=== PATIENT | female | born 1945 | race African-American/Black ===

== ENCOUNTER 2021-08-22 10:01 | Inpatient (IN) | payer OTHER ==
[~2021-08-22] VITALS: Ht 157.5 cm; Wt 71.2 kg
--- NOTE | ~2021-08-22 | PROC ---
[address] [address] PROCEDURE REPORT Name: MCKINLEY MANZO Room: [address] IN .#: [id number] Admission: 08/22/21 Attend Phys: Geoffrey Palomares MD Discharge: Date of : 45 Report #: [id number] THIS REPORT FOR: cc: Philippe Cardenas. Philippe Ramirez. [facility],Medical Records Staff ~ For GI report, please see the Provation report in Perceptive 7 content. By: 1218Medical Records Staff JEREMIAH /LISA
[~2021-08-22 10:01] MED LIST: AMLODIPINE BESY10 MG PO; ASPIRIN EC81 M1 PO; CARDURA4 MG PO; CATAPRES0.2 MG PO; COZAAR 50 MG TA50 M1 PO; DEMADEX20 MG PO; GLUCOTROL10 MG PO; LANTUS SUBQ; LOPRESSOR50 PO
[2021-08-22 10:06] VITALS: BP 89/34
[2021-08-22 10:42] LABS: ABSOLUTE BASOPHILS 0.1 thou/uL (0.0-0.2); ABSOLUTE EOSINOPHILS 0.1 thou/uL (0.0-0.7); ABSOLUTE LYMPHOCYTES 0.7 thou/uL (0.8-5.3); ABSOLUTE MONOCYTES 0.7 thou/uL (0.0-1.2); ABSOLUTE NEUTROPHILS 6.1 thou/uL (1.6-8.1); BASOPHILS 0.8 %; EOSINOPHILS 1.7 %; HEMATOCRIT 22.5 % (37.0-47.0); LYMPHOCYTES 8.6 %; MCH 32.4 pg (26.0-34.0); MCHC 31.4 g/dL (28.0-37.0); MCV 103.2 fL (80.0-100.0); MPV 9.9 fl. (7.2-11.1); NUCLEATED RBCS 0 /100WBC; PLATELET COUNT* 200 thou/uL (150-400); POLYS 79.9 %; RBC 2.18 mil/uL (4.20-5.00); RDW-CV 20.1 % (10.5-14.5); WBC 7.7 thou/uL (4.0-11.0)
[2021-08-22 10:52] LABS: CALCIUM 8.1 mg/dL (8.5-10.1); CREATININE 4.5 mg/dL (0.6-1.3); POTASSIUM 3.5 mmol/L (3.5-5.1)
[2021-08-22 10:57] LABS: ALBUMIN 2.7 g/dL (3.4-5.0); TOTAL BILIRUBIN 0.4 mg/dL (<0.1-1.0); TOTAL PROTEIN 6.6 g/dL (6.4-8.2)
[2021-08-22 11:47] LABS: PLATELET ESTIMATE ADEQUATE
[2021-08-22 11:48] LABS: MACROCYTES 1+
[2021-08-22 11:49] LABS: LARGE PLATELETS RARE; POLYCHROMASIA Occasional
[2021-08-22 11:50] LABS: ANISOCYTOSIS 1+
--- NOTE | 2021-08-22 14:07 | EKG ---
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 : 1945 Requested By: Elena Orr Order Number: [id number] MD: Fabian Orozco Measurements Intervals [place] Rate: 74 P: 65 ME: 210 QRS: 2 QRSD: 98 T: -17 QT: 400 QTc: 444 Interpretive Statements Pacemaker spikes or artifacts Sinus rhythm ventricular premature complexes in couplets Borderline T abnormalities, inferior leads Compared to ECG 05/03/2012 12:39:36 ventricular premature complex(es) now present Sinus bradycardia no longer present Left ventricular hypertrophy no longer present Electronically Signed On 08-22-2021 14:07:30 CARTON INSPECTOR by Fabian Orozco [email or web address] <ELECTRONICALLY SIGNED> By: Fabian Orozco MD, [facility] 08/22/21 1407 1014 1014 Fabian Orozco MD, [facility] /EPI
[2021-08-22 16:41] VITALS: BP 116/60
[2021-08-22 21:30] VITALS: BP 126/62
[2021-08-23 01:01] VITALS: BP 97/52
[2021-08-23 04:45] LABS: ABSOLUTE BASOPHILS 0.1 thou/uL (0.0-0.2); ABSOLUTE EOSINOPHILS 0.2 thou/uL (0.0-0.7); ABSOLUTE LYMPHOCYTES 0.9 thou/uL (0.8-5.3); ABSOLUTE MONOCYTES 0.7 thou/uL (0.0-1.2); BASOPHILS 0.9 %; EOSINOPHILS 3.3 %; HEMATOCRIT 22.1 % (37.0-47.0); HEMOGLOBIN 7.3 gm/dL (12.0-15.0); LYMPHOCYTES 12.6 %; MCH 31.5 pg (26.0-34.0); MCHC 32.9 g/dL (28.0-37.0); MONOCYTES 10.3 %; MPV 9.1 fl. (7.2-11.1); NUCLEATED RBCS 0 /100WBC; PLATELET COUNT* 144 thou/uL (150-400); POLYS 72.9 %; RBC 2.31 mil/uL (4.20-5.00); RDW-CV 21.4 % (10.5-14.5); WBC 6.9 thou/uL (4.0-11.0)
[2021-08-23 05:09] LABS: CALCIUM 7.8 mg/dL (8.5-10.1); POTASSIUM 3.2 mmol/L (3.5-5.1)
[2021-08-23 05:21] LABS: CREATININE 5.8 mg/dL (0.6-1.3)
[2021-08-23 05:39] LABS: MCV 95.6 fL (80.0-100.0)
[2021-08-23 05:52] VITALS: BP 92/57
[2021-08-23 06:22] LABS: ANISOCYTOSIS 2+; HYPOCHROMASIA 1+; MICROCYTES 1+
--- NOTE | 2021-08-23 06:51 | NUR ---
PT IS AO X4 FROM HOME HERE FOR DIZZINES, SHE WAS FOUND TO BE ANEMIC WITH LOW HGB AND RECEIVED BLOOD TRANSFUSION. PT REPORTS NO ILL SIDE AFFECTS FROM THIS. VSS, PT REPORTS NO PAIN. SHE IS A [facility] [facility] PT AND HAS ORDER FOR TODAY. PT FELL AT HOME HITTING HEAD AND HAS LARGE HEMATOMA ON FOREHEAD. BED ALARM ON FOR PT SAFETY.
--- NOTE | 2021-08-23 07:10 | NUR ---
CHANGE OF SHIFT REPORT GIVEM PATIENT SEEN AT BEDSIDE, IN BED ASLEEP ASSUMED PATIENT CARE
[2021-08-23 08:00] VITALS: BP 71/36
[2021-08-23 12:00] VITALS: BP 90/43
--- NOTE | 2021-08-23 12:28 | NUR ---
Nutrition: Pt admitted with anemia. Long-term HD. She had a recent fall and 3 blood transfusions. Consult received for wt loss. Pt stated she usually weighs 157#, so no apparent wt loss found. Renal diet ordered. Pt stated she is hungry. Gave her a menu for alternative ordering choices. Labs: BUN 24, cr 5.8, GFR 9, BG 67, alb 2.7, prealb 18.9 Mild nutrition risk. GOALS: continue good appetite, renal diet.
--- NOTE | 2021-08-23 15:30 | NUR ---
CM ASSESSMENT: PT A&O. PT INFORMS THAT SHE ADMITTED TO THIS HOSPITAL FROM SNF AT [facility] AND PLANS TO RETURN THERE AT D/C. PT ALSO INFORMS THAT PRIOR TO HER SNF ADMIT SHE RESIDED AT HOME ALONE. PT WAS INDEPENDENT WITH ADL'S, AND ACTIVE. PT USED A ROLLATOR FOR MOBILITY. PT HAD 0 HX OF HH. PT WILL NEED PT/OT TO ASSIST WITH INSURANCE AUTH FOR THE PT TO RETURN TO SNF AT [facility] AT D/C. CM WILL REMAIN AVAILABLE TO ASSIST AND FOLLOW NEEDED. [facility] PHONE: [phone]
[2021-08-23 16:00] VITALS: BP 156/79
[2021-08-23 21:45] VITALS: BP 90/40
--- NOTE | 2021-08-24 04:43 | NUR ---
PATIENT TRANSFERRED TO ROOM 314 FROM TELEMETRY AT APPROXIMATELY 2135. REPORT GIVEN FROM NURSE ARMENDARIZ. PATIENT BROUGHT TO UNIT ON BED. PATIENT ALERT AND ORIENTED X 4. MEDICATIONS GIVEN ORDERED AND CHARTED. PATIENT HAS REMAINED NPO SINCE MIDNIGHT D/T SCHEDULED EGD TODAY. ASSESSMENT CHARTED. FALL PRECAUTIONS IN PLACE AND HOURLY ROUNDS MADE. WILL CONTINUE WITH PLAN OF CARE AND NURSING TO MONITOR.
[2021-08-24 04:57] VITALS: BP 90/40
[2021-08-24 06:16] LABS: ABSOLUTE EOSINOPHILS 0.2 thou/uL (0.0-0.7); ABSOLUTE LYMPHOCYTES 1.1 thou/uL (0.8-5.3); ABSOLUTE MONOCYTES 0.7 thou/uL (0.0-1.2); ABSOLUTE NEUTROPHILS 4.5 thou/uL (1.6-8.1); BASOPHILS 0.5 %; EOSINOPHILS 3.8 %; HEMATOCRIT 23.2 % (37.0-47.0); HEMOGLOBIN 7.5 gm/dL (12.0-15.0); LYMPHOCYTES 16.4 %; MCH 31.4 pg (26.0-34.0); MCHC 32.2 g/dL (28.0-37.0); MCV 97.5 fL (80.0-100.0); MONOCYTES 10.4 %; MPV 9.7 fl. (7.2-11.1); NUCLEATED RBCS 0 /100WBC; PLATELET COUNT* 127 thou/uL (150-400); POLYS 68.9 %; RBC 2.38 mil/uL (4.20-5.00); RDW-CV 20.9 % (10.5-14.5); WBC 6.6 thou/uL (4.0-11.0)
[2021-08-24 06:35] LABS: ALBUMIN 2.3 g/dL (3.4-5.0); CALCIUM 8.1 mg/dL (8.5-10.1); POTASSIUM 4.3 mmol/L (3.5-5.1); TOTAL BILIRUBIN 0.5 mg/dL (<0.1-1.0); TOTAL PROTEIN 5.9 g/dL (6.4-8.2)
[2021-08-24 06:38] LABS: CREATININE 3.5 mg/dL (0.6-1.3)
[2021-08-24 06:53] LABS: ANISOCYTOSIS 2+; PLATELET ESTIMATE ADEQUATE
[2021-08-24 06:54] LABS: HYPOCHROMASIA 1+; MICROCYTES 1+
[2021-08-24 08:45] VITALS: BP 123/65
--- NOTE | 2021-08-24 17:07 | NUR ---
PLAN OF CARE: PHYSICIAN INFORMS THAT THE PT MAY BE READY TO D/C OVER THE WEEKEND. PLAN FOR THE PT TO RETURN TO [facility] AT D/C. PT/OT EVALS NEEDED TO ASSIST WITH OBTAINING AUTH FOR THE PT. CM WILL REMAIN AVAILABLE TO ASSIST AND FOLLOW NEEDED. [facility] PHONE: [phone]
--- NOTE | 2021-08-24 18:52 | NUR ---
CM FOLLOWUP PT POTENTIAL WEEKEND DC BACK TO [facility] ([phone]). PT/OT FAXED TO [facility] AND [facility] FOR AUTH. AUTH PENDING.
[2021-08-24 19:45] VITALS: BP 120/51
--- NOTE | 2021-08-24 19:52 | NUR ---
PT UP WITH THERAPY WALKING IN THE HALLWAY. PT WENT DOWN FOR HER EGD AND THEY TOOK BIOPSY'S SHE HAS A HIATAL HERNIA, ESPHOGITIS, COLITIS
--- NOTE | 2021-08-24 22:52 | NUR ---
ASSUMED CARE AT 1930. PATIENT RESTING IN BED. TURNS SELF. NO C/O PAIN. TAKES PILLS WITH WATER. BLOOD SUGAR 105. LISPRO NOT INDICATED. PATIENT REFUSED LANTUS INSULIN BECAUSE SHE HAD LOW BLOOD SUGARS ALL DAY DESPITE EDUCATION. [facility] SHUNT HAS POSITIVE THRILL AND BRUIT. NO DRESSING. SALINE LOCK TO LT FA INTACT. HOURLY ROUNDS CONTINUE. BED ALARM ON. CALL LITE IN REACH.
--- NOTE | 2021-08-25 05:47 | NUR ---
RESTED IN BED ALL NIGHT. NO C/O PAIN. TURNS SELF. HOURLY ROUNS CONTINUE. BED ALAMR ON. CALL LITE IN REACH.
[2021-08-25 08:00] VITALS: BP 119/59
[2021-08-25] MEDS ORDERED: CARAFATE 1 GM TA1 G1 PO (08:17)
[2021-08-25] MEDS ORDERED: PROTONIX40 M2 PO (08:17)
[2021-08-25 09:35] LABS: ABSOLUTE EOSINOPHILS 0.2 thou/uL (0.0-0.7); ABSOLUTE MONOCYTES 0.7 thou/uL (0.0-1.2); ABSOLUTE NEUTROPHILS 6.5 thou/uL (1.6-8.1); BASOPHILS 0.5 %; EOSINOPHILS 2.4 %; HEMATOCRIT 25.7 % (37.0-47.0); HEMOGLOBIN 8.2 gm/dL (12.0-15.0); LYMPHOCYTES 11.6 %; MCH 31.5 pg (26.0-34.0); MCHC 32.1 g/dL (28.0-37.0); MCV 98.3 fL (80.0-100.0); MONOCYTES 7.8 %; MPV 9.7 fl. (7.2-11.1); NUCLEATED RBCS 0 /100WBC; PLATELET COUNT* 127 thou/uL (150-400); POLYS 77.7 %; RBC 2.61 mil/uL (4.20-5.00); RDW-CV 21.2 % (10.5-14.5); WBC 8.4 thou/uL (4.0-11.0)
[2021-08-25 09:44] LABS: CALCIUM 8.4 mg/dL (8.5-10.1); CREATININE 5.9 mg/dL (0.6-1.3); POTASSIUM 4.5 mmol/L (3.5-5.1)
[2021-08-25 09:48] LABS: ALBUMIN 2.5 g/dL (3.4-5.0); TOTAL BILIRUBIN 0.6 mg/dL (<0.1-1.0); TOTAL PROTEIN 6.4 g/dL (6.4-8.2)
[2021-08-25 11:07] LABS: PLATELET ESTIMATE DECREASED
[2021-08-25 11:08] LABS: ANISOCYTOSIS 2+; HYPOCHROMASIA 1+; MACROCYTES 1+; MICROCYTES 1+; POLYCHROMASIA Occasional
[2021-08-25 17:30] VITALS: BP 123/61
--- NOTE | 2021-08-25 19:43 | NUR ---
PT HAD DIALYSIS THIS AFTERNOON, THEY TOOK OFF ONE LITER OF FLUID, PT TOLERATED DIALYSIS FINE. PT UP WITH SBA TO THE BATHROOM. VSS AFEBRILE. WILL CONTINUE TO MONITOR PLAN OF CARE.
[2021-08-25 20:10] VITALS: BP 121/57
[2021-08-26 03:05] LABS: HEPATITIS B SURFACE AG Negative (Negative)
--- NOTE | 2021-08-26 04:56 | NUR ---
PT SLEPT OFF AND ON OVERNIGHT. UP WITH ASSIST GB AND WALKER TO BR. LFA SL. R UPPER ARM FISTULA + BRUIT AND THRILL. HS ACCUCHECK 130, REFUSING INSULINS. AOX4, ABLE TO USE CALL LITE AND MAKE NEEDS KNOWN. PT HOPEFUL FOR DISCHARGE SOON. CM FOLLOWING FOR DC PLAN TO IGNITE, INS AUTH PENDING. FALL PRECAUTIONS IN PLACE.
[2021-08-26 08:23] VITALS: BP 128/64
[2021-08-26] MEDS ORDERED: NOVOLOG100 UNIT/M SUBQ (12:08)
[2021-08-26 16:00] VITALS: BP 134/68
--- NOTE | 2021-08-26 17:28 | NUR ---
SPOKE MULTIPLE TIME WITH STORAGE FACILITY HOUSEKEEPER TRACEY ABOUT TRANSFERING PT BACK TO [facility] AND [facility]'S STORAGE FACILITY HOUSEKEEPER STATES "WE WILL HAVE HER BED READY WHEN OUR PT THAT IS DISCHARGED GETS PICKED UP BY THEIR FAMILY TODAY". [facility] HAS FAILED TO CALL AND INFORM US IF THE BED IS AVAILABLE AT THIS TIME.
[2021-08-26 19:45] VITALS: BP 107/63
[2021-08-27] VITALS (7 sets, daily range): BP systolic 110–140; BP diastolic 60–63
--- NOTE | 2021-08-27 04:18 | NUR ---
PT A&O X 4. VSS ON RA. NO C/O PAIN. PT SLEPT OFF AND ON. NO OTHER CONCERNS AT THIS TIME. CALL LIGHT WITHIN REACH. WILL CONTINUE TO MONITOR.
--- NOTE | 2021-08-27 17:18 | NUR ---
CM INFORMED THAT PT'S INSURANCE HAS NOW DECLINED PT TO SNF AND RECOMMENDS HOME WITH HH. PT IN AGREEMENT WITH THIS PLAN AND INFORMS THAT SHE HAS NO PREFERENCE OF HH AT D/C, AND ACCEPTS HH WITH [facility]END[facility]EPTANCE. CM WILL REMAIN AVAILABLE TO ASSIST FOLLOW NEEDED. [facility] PHONE: [phone]
--- NOTE | 2021-08-27 19:36 | NUR ---
PT VERY UPSET THIS AFTERNOON AND EVENING ABOUT BEING DISCHARGED AFTER DIALYSIS, PT DAUGHTER WAS VERY UP SET TOO. HAD THE NURSING SUPER VISOR CALL AND TALK TO HER ABOUT BEING DISCHARGED [facility]. VSS AFEBRILE. WILL CONTINUE TO MONITOR PLAN OF CARE.
--- NOTE | 2021-08-27 21:58 | NUR ---
PT BACK FROM DIALYSIS AT 2019. VSS ON RA. ALL DISCHARGE INSTRUCTIONS REVIEWED WITH THE PT. PT LEFT THE UNIT VIA WHEELCHAIR ACCOMPANIED BY STAFF AND HER DTR WITH ALL HER BELONGINGS AND PAPERWORK.
--- NOTE | 2021-08-29 15:07 | PATH ---
[address] [address] PATHOLOGY RPT PROCEDURE Name: ISABEL MANZO Room: [address] IN [facility]#: [id number] Admission: 08/22/21 Date of : 45 Discharge: 08/27/21 Report #: [id number] Path Case #: [id number] [facility] Accession Number: [id number] . 01 Material submitted: . PART A: stomach - ANTRAL EROSION BIOPSY PART B: duodenum - DUODENAL ULCER BIOPSY . 01 Clinical history: . EGD IN OR . 02 Diagnosis: A. 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 . B. Duodenal ulcer biopsy: - Mild active duodenitis with fundic gland metaplasia suggesting peptic ulcer disease, negative for granulomas, viral inclusions and dysplasia/adenomatous change. . (MINDY:asaf; 08/28/2021) . Special stain on A: H. pylori immuno MBR 08/28/2021 1131 Local . 02 Electronically signed: . Rocky Espinoza MD, Pathologist NPI- [id number] . 01 Gross description: . A. Received in formalin labeled "Isabel Manzo, antral erosion biopsy" is a fragment of hollingsworth-brown soft tissue measuring 0.7 x 0.3 x 0.1 cm. The specimen is submitted entirely in A1. . B. Received in formalin labeled "Isabel Manzo, duodenal ulcer biopsy" are multiple fragments of hollingsworth-brown soft tissue measuring in aggregate 0.5 x 0.4 x 0.1 cm. The specimen is submitted entirely in B1. ([facility]; 08/27/2021) [facility] 08/27/2021 1601 Local . 02 Pathologist provided ICD-10: K29.50, K29.80 . 02 CPT . 770036, 410992, M27555 Specimen Comment: A courtesy copy of this report has been sent to [phone] [address] PATHOLOGY RPT PROCEDURE Name: JOVANYISABEL C Room: [address] IN [facility].#: [id number] Admission: 08/22/21 Date of : 45 Discharge: 08/27/21 Report #: [id number] Path Case #: [id number] Specimen Comment: [id number], Specimen Comment: Report sent to , DR MAYA / DR PADRON Specimen Comment: A duplicate report has been generated due to demographic updates. Performed at: [address] [facility] [address], [place] [id number] MD Woo Olivera MD Phone: [phone] Performed at: [address] [facility] [address] [place], [place] [id number] MD Rocky Espinoza MD Phone: [phone]
== END 2021-08-27 21:35 | disposition home health service (06) | DRG 377 ==
LOC: M.ERS 10:01 → M.3W 12:42 → M.TBA-ER 12:42 → M.2W 12:42 → M.3W 08-23 21:51
PROVIDERS: Internal Medicine Gastroenterology; Internal Medicine Nephrology; Physician Assistant; ADMIT Internal Medicine; ATTEND Internal Medicine
DX: K26.4 Chronic or unspecified duodenal ulcer with hemorrhage (principal); N18.6 End stage renal disease; K21.01 Gastro-esophageal reflux disease with esophagitis, with bleeding; Z20.822 Contact with and (suspected) exposure to COVID-19; E11.22 Type 2 diabetes mellitus with diabetic chronic kidney disease; I95.9 Hypotension, unspecified; K44.9 Diaphragmatic hernia without obstruction or gangrene; D50.0 Iron deficiency anemia secondary to blood loss (chronic); K22.2 Esophageal obstruction; K31.9 Disease of stomach and duodenum, unspecified; S00.93XA Contusion of unspecified part of head, initial encounter; X58.XXXA Exposure to other specified factors, initial encounter; Y93.89 Activity, other specified; Y92.89 Other specified places as the place of occurrence of the external cause; Y99.8 Other external cause status; Z95.2 Presence of prosthetic heart valve; Z88.6 Allergy status to analgesic agent; Z79.82 Long term (current) use of aspirin; Z79.899 Other long term (current) drug therapy